=== PATIENT | male | born 1950 | race Caucasian/White ===

== ENCOUNTER 2021-05-29 19:25 | Emergency (ER) | payer BC, OTHER ==
[~2021-05-29] VITALS: Ht 177.8 cm; Wt 78.0 kg
[~2021-05-29 19:25] MED LIST: PANTOPRAZOLE SO40 MG PO; SUCRALFATE1 GM PO; tramadol PO
== END 2021-05-29 20:14 | disposition home or self-care (01) ==
LOC: FSED 20:00
DX: H11.32 Conjunctival hemorrhage, left eye (principal)
CPT/HCPCS: 99283

== ENCOUNTER 2024-04-23 10:59 | Outpatient (RCR) | payer MEDICARE | END 2024-04-24 | LOC: PT 10:59 | PROVIDERS: ATTEND Family Medicine | DX: M25.512 Pain in left shoulder (principal) ==

== ENCOUNTER 2024-04-25 07:50 | Outpatient (RCR) | payer MEDICARE | END 2024-05-25 | LOC: PT 07:50 | PROVIDERS: ATTEND Family Medicine | DX: M25.512 Pain in left shoulder (principal) ==

== ENCOUNTER 2024-09-29 09:52 | Emergency (ER) | payer MEDICARE ==
[~2024-09-29] VITALS: Ht 177.8 cm; Wt 85.9 kg
[2024-09-29] MEDS ORDERED: PANTOPRAZOLE SO20 MG (11:08)
[2024-09-29 12:57] VITALS: PULSE 60; RESP 16; TEMP 98.3; O2SAT 98
== END 2024-09-29 12:57 | disposition home or self-care (01) ==
LOC: FSED 09:55
DX: R06.02 Shortness of breath (principal); R00.2 Palpitations; I10 Essential (primary) hypertension; E78.5 Hyperlipidemia, unspecified; K21.9 Gastro-esophageal reflux disease without esophagitis; Z87.442 Personal history of urinary calculi; Z87.19 Personal history of other diseases of the digestive system
CPT/HCPCS: 70450; 71046; 80053; 82553; 83880; 84484; 85025; 85379; 93005; 99284

== ENCOUNTER 2025-03-08 21:59 | Emergency (ER) | payer MEDICARE ==
[~2025-03-08] VITALS: Ht 177.8 cm; Wt 82.6 kg
[~2025-03-08 21:59] MED LIST changes: +PANTOPRAZOLE SO20 MG
[2025-03-08] MEDS ORDERED: KETOROLAC TROMETHAMINE 30 MG/ML VIAL IV STA (23:39)
[2025-03-08] MEDS ORDERED: IOPAMIDOL 370 MG/ML 100 ML INFUS..BTL INJ ONE (23:54)
[2025-03-09] MEDS: KETOROLAC TROMETHAMINE 30 MG/ML VIAL IV STA (00:21)
[2025-03-09] MEDS: SODIUM CHLORIDE 0.9% 1000ML 1,000 ML IV ONE (00:22)
[2025-03-09 02:30] VITALS: PULSE 72; RESP 16; TEMP 97.8; O2SAT 98
== END 2025-03-09 02:31 | disposition home or self-care (01) ==
LOC: FSED 23:40
DX: R10.30 Lower abdominal pain, unspecified (principal); R14.0 Abdominal distension (gaseous); I10 Essential (primary) hypertension; E78.5 Hyperlipidemia, unspecified; K21.9 Gastro-esophageal reflux disease without esophagitis; Z87.442 Personal history of urinary calculi; Z87.19 Personal history of other diseases of the digestive system
CPT/HCPCS: 74177; 99284; J7030; Q9967; J1885

== ENCOUNTER 2025-06-23 10:00 | Outpatient (RCR) | payer MEDICARE | END 2025-06-24 | LOC: PT 10:00 | DX: M25.511 Pain in right shoulder (principal) ==